=== PATIENT | female | born 1935 | race Caucasian/White ===

== ENCOUNTER 2017-12-24 07:00 | Inpatient (IN) | payer OTHER ==
[~2017-12-24] VITALS: Ht 157.5 cm; Wt 88.0 kg
[2017-12-24] VITALS (8 sets, daily range): BP systolic 135–190; BP diastolic 61–91
[~2017-12-24 07:00] MED LIST: ALENDRONATE SOD70 MG PO; APAP500 PO; ASPIR 8181 MG PO; ATORVASTATIN CA40 MG PO; BRILINTA90 MG PO; BYSTOLIC 5 MG5 M1 PO; CRANBERRY 6,001 EACH PO; FISH OIL 1,001000 M2 PO; GLUCOSAMINE HC500 MG PO; IRON325 PO; LEVOTHYROXIN0.112 M1 PO; LOPRESSOR50 PO; NITROGLYCERIN0.4 MG SUBLING; PEPCID20 MG PO; PLAVIX 75 MG TA75 MG PO; UNICOMPLEX M TA1 TA1 PO; VITAMINC500 PO; XALATAN2.5 ML OPHTHALMIC; XARELTO15 MG PO; ZANTAC 7575 MG PO
[2017-12-24] MEDS ORDERED: ISOSORBIDE DINI30 MG PO (07:22)
[2017-12-24 07:34] LABS: ABSOLUTE BASOPHILS 0.1 thou/uL (0.0-0.2); ABSOLUTE EOSINOPHILS 0.2 thou/uL (0.0-0.7); ABSOLUTE LYMPHOCYTES 1.2 thou/uL (0.8-5.3); ABSOLUTE MONOCYTES 0.3 thou/uL (0.0-1.2); ABSOLUTE NEUTROPHILS 3.5 thou/uL (1.6-8.1); BASOPHILS 1.4 %; HEMATOCRIT 38.7 % (37.0-47.0); HEMOGLOBIN 13.2 gm/dL (12.0-15.0); LYMPHOCYTES 22.7 %; MCH 33.4 pg (26.0-34.0); MCHC 34.1 g/dL (28.0-37.0); MCV 97.9 fL (80.0-100.0); MONOCYTES 5.5 %; MPV 9.5 fl. (7.2-11.1); NUCLEATED RBCS 0 /100WBC; PLATELET COUNT* 230 thou/uL (150-400); POLYS 67.4 %; RBC 3.96 mil/uL (4.20-5.00); RDW-CV 13.9 % (10.5-14.5); WBC 5.2 thou/uL (4.0-11.0)
[2017-12-24 07:48] LABS: APTT 31.7 Seconds (25.0-31.3); INR 1.2; PROTIME 11.7 Seconds (9.20-11.50)
[2017-12-24 07:51] LABS: ANION GAP 12 mmol/L (7-16); BUN 12 mg/dL (7-18); CALCIUM 8.7 mg/dL (8.5-10.1); CHLORIDE 106 mmol/L (98-107); CO2 25 mmol/L (21-32); CREATININE 0.9 mg/dL (0.6-1.3); GLUCOSE 130 mg/dL (70-99); POTASSIUM 3.3 mmol/L (3.5-5.1); SODIUM 143 mmol/L (136-145)
[2017-12-24 08:10] LABS: ALBUMIN 3.4 g/dL (3.4-5.0); ALKALINE PHOSPHATASE 71 U/L (46-116); CK-MB MASS 3.4 ng/mL (<0.5-3.6); LIPASE 74 U/L (73-393); MAGNESIUM 1.8 mg/dL (1.8-2.4); NT-PRO BRAIN NAT PEPTIDE 513 pg/mL (<300); SGOT 27 U/L (15-37); SGPT 43 U/L (30-65); TOTAL BILIRUBIN 0.5 mg/dL (<0.1-1.0); TROPONIN-I LEVEL <0.06 ng/mL (<0.06)
[2017-12-24] MEDS ORDERED: XARELTO15 MG PO (11:39)
--- NOTE | 2017-12-24 12:11 | EKG ---
[place] [address] ELECTROCARDIOGRAM REPORT Name: SAMMY LUJAN Room: [address] IN [facility]#: [id number] Admission: 12/24/17 Attend Phys: Sergio Kelsey, Discharge: Date of : 33 Report #: [id number] THIS REPORT FOR: //name// [facility] ED Test Date: 2017-12-24 Test Time: 07:12:12 Pat Name: SAMMY LUJAN Department: Room: Gender: F News Commentator: Loi AVIAN : 1935 Requested By: Nelson Ponce Order Number: [id number] MD: Mat Loya Measurements Intervals [place] Rate: 59 P: 30 TN: 168 QRS: 20 QRSD: 112 T: 58 QT: 411 QTc: 408 Interpretive Statements Pacemaker spikes or artifacts Sinus rhythm Supraventricular bigeminy Probable left atrial enlargement Left ventricular hypertrophy Compared to ECG 12/06/2016 11:43:01 Left ventricular hypertrophy now present Electronically Signed On 12-24-2017 12:11:04 CDT by Mat Loya [email or web address] <ELECTRONICALLY SIGNED> By: Alisia Loya MD, [facility] 12/24/17 1211 1 1 Alisia Loya MD, [facility] /EPI
[2017-12-24 13:20] LABS: CALCIUM 8.9 mg/dL (8.5-10.1); MAGNESIUM 1.9 mg/dL (1.8-2.4); POTASSIUM 3.7 mmol/L (3.5-5.1)
[2017-12-25 04:22] VITALS: BP 185/76
[2017-12-25 07:28] LABS: HEMATOCRIT 39.6 % (37.0-47.0); HEMOGLOBIN 13.4 gm/dL (12.0-15.0); MCH 33.3 pg (26.0-34.0); MCHC 33.8 g/dL (28.0-37.0); MCV 98.5 fL (80.0-100.0); MPV 9.2 fl. (7.2-11.1); RBC 4.02 mil/uL (4.20-5.00); RDW-CV 14.4 % (10.5-14.5); WBC 5.5 thou/uL (4.0-11.0)
[2017-12-25 07:48] LABS: ALBUMIN 3.1 g/dL (3.4-5.0); ALKALINE PHOSPHATASE 60 U/L (46-116); ANION GAP 9 mmol/L (7-16); BUN 16 mg/dL (7-18); CALCIUM 8.5 mg/dL (8.5-10.1); CHLORIDE 107 mmol/L (98-107); CHOLESTEROL 115 mg/dL (<200); CO2 26 mmol/L (21-32); GLUCOSE 126 mg/dL (70-99); HDL CHOLESTEROL 48 mg/dL (>40); LDL CHOLESTEROL 44 mg/dL (<100); POTASSIUM 3.5 mmol/L (3.5-5.1); SGOT 26 U/L (15-37); SGPT 38 U/L (30-65); SODIUM 142 mmol/L (136-145); TC:HDL 2.4 Ratio (Not establshd); TOTAL BILIRUBIN 0.4 mg/dL (<0.1-1.0); TOTAL PROTEIN 6.8 g/dL (6.4-8.2); TRIGLYCERIDE 115 mg/dL (<150); TROPONIN-I LEVEL 0.24 ng/mL (<0.06); VLDL 23 mg/dL (<40)
[2017-12-25 07:49] LABS: SERUM ASSESSMENT Clear
[2017-12-25 08:00] VITALS: BP 188/63
[2017-12-25 12:00] VITALS: BP 203/87
--- NOTE | 2017-12-25 14:04 | 2DMMODE ---
[place] [address] 2 D/M-MODE ECHOCARDIOGRAM Name: SAMMY LUJAN Room: [address] IN [facility]#: [id number] Admission: 12/24/17 Attend Phys: Sergio Groves Discharge: Date of : 33 Date of Service: 12/25/17 1404 Report #: [id number] THIS REPORT FOR: //name// APPROVED REPORT Study performed: 12/25/2017 11:45:14 EXAM: Comprehensive 2D, Doppler, and color-flow Echocardiogram Patient Location: In-Patient Room #: [facility] Status: routine BSA: 1.87 HR: 65 bpm BP: 188/63 mmHg Rhythm: NSR Other Information Study Quality: Good Indications CAD Chest Pain 2D Dimensions LVEF(%): 85.59 (>50%) IVSd: 11.32 (7-11mm) LVOT Diam: 17.98 (18-24mm) LVDd: 48.62 mm PWd: 10.45 (7-11mm) Ascending Ao: 39.63 (22-36mm) LVDs: 21.87 (25-40mm) Aortic Root: 35.77 mm Greer's LVEF: 85.59 % Volumes Left Atrial Volume (Systole) LA ESV Index: 34.90 mL/m2 Aortic Valve AoV Peak Rafael.: 1.86 m/s AO Peak Gr.: 13.81 mmHg LVOT Max P.43 mmHg AO Mean Gr.: 6.69 mmHg LVOT Mean P.35 mmHg LVOT Max V: 1.45 m/s AO V2 VTI: 41.29 cm LVOT Mean V: 0.96 m/s MUKUL (VTI): 2.19 cm2 LVOT V1 VTI: 35.64 cm AI [place]: 2.75 m/s2 AI PHT: 488.32 [place] [address] 2 D/M-MODE ECHOCARDIOGRAM Name: SAMMY LUJAN Room: [address] IN [facility]#: [id number] Admission: 12/24/17 Attend Phys: Sergio Groves Discharge: Date of : 34 Date of Service: 12/25/17 1404 Report #: [id number] Mitral Valve E/A Ratio: 1.01 MV Decel. Time: 264.72 ms MV E Max Rafael.: 1.29 m/s MV PHT: 76.77 ms MVA (PHT): 2.87 cm2 TDI E/Lateral E': 21.50 E/Medial E': 18.43 Medial E' Rafael.: 0.07 m/s Lateral E' Rafael.: 0.06 m/s Pulmonary Valve PV Peak Rafael.: 0.82 m/s PV Peak Gr.: 2.68 mmHg Tricuspid Valve TR Peak Gr.: 26.65 mmHg RVSP: 31.00 mmHg Left Ventricle The left ventricle is normal size. There is normal LV segmental wall motion. There is normal left ventricular wall thickness. Left ventricular systolic function is normal. The left ventricular ejection fraction is within the normal range. LVEF is 65%. Grade I - abnormal relaxation pattern. Right Ventricle The right ventricle is normal size. The right ventricular systolic function is normal. Atria The left atrium size is normal. The right atrium size is normal. Aortic Valve Mild aortic valve sclerosis. Mild aortic regurgitation. There is no aortic valvular stenosis. Mitral Valve The mitral valve is mildly thickened. Mild mitral regurgitation. No evidence of mitral valve stenosis. Tricuspid Valve The tricuspid valve is normal in structure. Mild tricuspid regurgitation. The RVSP is 30-35 [place] [address] 2 D/M-MODE ECHOCARDIOGRAM Name: SAMMY LUJAN Room: [address] IN [facility]#: [id number] Admission: 12/24/17 Attend Phys: Sergio Groves Discharge: Date of : 33 Date of Service: 12/25/17 1404 Report #: [id number] Pulmonic Valve The pulmonary valve is normal in structure. Trace pulmonic regurgitation. Great Vessels The aortic root is normal in size. IVC is normal in size and collapses with >50% inspiration Pericardium There is no pericardial effusion. <Conclusion> The left ventricle is normal size. There is normal left ventricular wall thickness. Left ventricular systolic function is normal. The left ventricular ejection fraction is within the normal range. LVEF is 65%. Grade I - abnormal relaxation pattern. The right ventricle is normal size. The left atrium size is normal. Mild aortic valve sclerosis. Mild aortic regurgitation. There is no aortic valvular stenosis. The mitral valve is mildly thickened. Mild mitral regurgitation. No evidence of mitral valve stenosis. The tricuspid valve is normal in structure. Mild tricuspid regurgitation. The RVSP is 30-35 mmHg. IVC is normal in size and collapses with >50% inspiration There is no pericardial effusion. There is normal LV segmental wall motion. <ELECTRONICALLY SIGNED> By: Johnson Posada MD, FACC 12/25/17 1404 1404 1404 Johnson Posada MD, FACC /INF
--- NOTE | 2017-12-25 14:22 | EKG ---
[place] [address] ELECTROCARDIOGRAM REPORT Name: SAMMY LUJAN Room: [address] ADM IN .R.#: [id number] Admission: 12/24/17 Attend Phys: Sergio Kelsey, Discharge: Date of : 34 Report #: [id number] THIS REPORT FOR: //name// [facility] Test Date: 2017-12-24 Test Time: 18:59:37 Pat Name: SAMMY LUJAN Department: Room: [address] Gender: F Customer Experience Strategist: : 1935 Requested By: Nelson Ponce Order Number: [id number] MD: Johnson Posada Measurements Intervals [place] Rate: 74 P: 38 [place]: 159 QRS: 29 QRSD: 88 T: 50 QT: 410 QTc: 455 Interpretive Statements Sinus rhythm Baseline wander in lead(s) V4,V6 Compared to ECG 12/24/2017 07:12:12 Atrial premature complex(es) no longer present Left ventricular hypertrophy no longer present Electronically Signed On 12-25-2017 14:21:59 CDT by Johnson Posada [email or web address] <ELECTRONICALLY SIGNED> By: Johnson Posada MD, [facility] 12/25/17 1421 1859 1859 Johnson Posada MD, [facility] /EPI
--- NOTE | 2017-12-25 14:22 | EKG ---
[place] [address] ELECTROCARDIOGRAM REPORT Name: SAMMY LUJAN Room: [address] ADM IN ..#: [id number] Admission: 12/24/17 Attend Phys: Sergio Kelsey, Discharge: Date of : 34 Report #: [id number] THIS REPORT FOR: //name// 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 12/25/17 1421 1859 1859 Johnson Posada MD, [facility] /EPI
[2017-12-25 16:00] VITALS: BP 210/71
--- NOTE | 2017-12-25 16:38 | CON ---
[address] [address] CONSULTATION Name: SAMMY LUJAN Room: [address] IN .R.#: [id number] Admission: 12/24/17 Attend Phys: Sergio Kelsey, Discharge: Date of : 34 Report #: [id number] THIS REPORT FOR: //name// CC: Nyla Kelsey DATE OF SERVICE: 12/24/2017 CARDIOLOGY CONSULTATION HISTORY OF PRESENT ILLNESS: I was asked by Dr. Kelsey and by Dr. Ponce to see this 82-year-old white female in cardiology consultation for evaluation and treatment of chest pain. 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 Additionally, she has a 50% mid ramus intermedius occlusion. There are diffuse luminal irregularities, up to 50% tubular narrowing in the mid LAD as well. There is a metal stent in the codominant circumflex that was open as of 08/2015. The right coronary artery is occluded at the ostium. The right coronary artery was also completely occluded after the right ventricular branch. This lady probably has chronic stable angina, although she really never reported it to her primary outside machinist apprentice, Dr. Yu. She in fact has substernal chest pressure with exertion that she has had for years. It stops her from doing what she needs to do and she has to sit down and recover. She has not used nitroglycerin for that. Yesterday, she had a fairly severe chest pressure that I think she said was a 7 or 8 on a scale of 10. It lasted about an hour. Nitroglycerin that she took at home did not help. She got some nitrospray en route to the ER with EMS that seemed to help. It was substernal discomfort that radiated to her neck. The discomfort was worse with activity, better with rest, occurred at rest yesterday and was associated with shortness of breath, but not nausea or vomiting. There was no diaphoresis. She got this discomfort this morning when she woke up. There was no relationship to food. She does have chronic dyspnea on exertion, but not shortness of breath at rest, orthopnea or PND. She does get edema occasionally. She has not had syncope or near syncope. Coronary risk factors include a past history of smoking, she is a former smoker, however. She does have hypercholesterolemia, but not diabetes. She does have high blood pressure. There is family history of heart disease. She has not had renal disease. 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 Her right coronary artery does have a TREE TAPPING LABORER. She does have a history of paroxysmal atrial fibrillation that occurred in the context of multiple pulmonary emboli, I believe in November of last year. She has been on Xarelto since; initially she was on 15 mg twice a day and then 20 mg a day and more recently 15 mg a day. She is now over a year since she was started on Xarelto. At one time she was on aspirin and clopidogrel, but she developed bleeding issues and those had to be stopped. She does have hypothyroidism as well. She did have myocardial infarction that resulted in her getting the stent [address] [address] CONSULTATION Name: SAMMY LUJAN Room: M.221-P ADM IN M.R.#: [id number] Admission: 12/24/17 Attend Phys: Sergio Kelsey, Discharge: Date of : 34 Report #: [id number] in her coronary. She has never had a TIA or CVA. She does get pain in her legs when she walks and may have claudication. She does not have any open or nonhealing wounds. She does have a history of congestive heart failure, she says. She has had a cyst in her kidneys. She has a history of arteritis. She has had a kidney surgery, bladder surgery, hysterectomy, and both knees replaced. ALLERGIES: SHE HAS MULTIPLE ALLERGIES INCLUDING PENICILLIN, SULFA, NITROFURANTOIN, TRIMETHOPRIM, HYDRALAZINE. HOME MEDICATIONS: Include p.r.n. Tylenol, Fosamax 70 mg , atorvastatin 40 mg daily, fish oil 1000 mg b.i.d., iron 325 mg daily, Imdur 30 mg daily, Synthroid 0.112 mg daily, metoprolol 50 mg b.i.d., multivitamin with minerals daily, and p.r.n. nitroglycerin as well as Xarelto 15 mg daily. Today, I decreased her Xarelto dose to 10 mg daily given that she has been over a year since her pulmonary emboli. REVIEW OF SYSTEMS: Positive for palpitations, chest discomfort, shortness of breath with exercise, history of a heart murmur as a child, extremity edema, thyroid trouble, blood clot in her lungs, medical ALLERGIES INCLUDING PENICILLIN, arthritis, wearing glasses and loss of vision. Otherwise, review of systems is negative for some 35 different complaints in 14 different system categories including central nervous system, general, respiratory, cardiovascular, endocrine, gastrointestinal, genitourinary, hematologic, lymphatic, allergic, immunologic, psychiatric, musculoskeletal, skin, eyes, ears, nose and throat. Please see review of systems form for details and negatives in review of systems. SOCIAL HISTORY: She is . She has an alcoholic beverage rarely, usually only 2-3 times a year. She does not smoke, does not use illegal drugs. FAMILY HISTORY: Mother of kidney failure. Grandmother and aunts had heart disease. Sister had an aortic aneurysm. PHYSICAL EXAMINATION: GENERAL: She presents as a well-developed, well-nourished white female, in no acute distress. VITAL SIGNS: Pulse was 63 and regular, blood pressure is 165/70, respirations 16 and regular, temperature is 98.4. HEENT: Her head is atraumatic. Eyes clear. NECK: Supple. There is no jugular venous distention or hepatojugular reflux. Thyroid is not enlarged. There is no adenopathy. SKIN: Warm and dry. MOUTH: Mucous membranes are moist. LUNGS: Clear to auscultation and percussion. HEART: Revealed normal first and second heart sounds. There is soft [place] [address] CONSULTATION Name: SAMMY LUJAN Room: [address]#: [id number] Admission: 12/24/17 Attend Phys: Sergio Kelsey, Discharge: Date of : 34 Report #: [id number] is no S3. There are no murmurs, rubs, thrills, heaves or gallops. PMI is nondisplaced. ABDOMEN: Soft, flat, nontender, no palpable masses, no organomegaly. EXTREMITIES: Reveal no cyanosis, clubbing or edema. NEUROLOGIC: The patient mentated normally, talked normally and moved all extremities normally. DIAGNOSTIC DATA: Her EKG showed normal sinus rhythm. There are atrial premature beats, left atrial enlargement, probable left ventricular hypertrophy and there are no acute changes. LABORATORY DATA: Her initial troponin was normal and her NT-proBNP was only 513. CPK was 222 with a CK-MB of 3.4. IMPRESSION: 1. Chest pain, likely ischemic. 2. Coronary artery disease. 3. Carotid vascular disease. 4. Left subclavian stenosis. 5. Chronic total occlusion of the right coronary artery. 6. Paroxysmal atrial fibrillation. 7. Status post multiple pulmonary emboli. 8. Essential hypertension. 9. Hypothyroidism. 10. Hypercholesterolemia. RECOMMENDATION: She should have a Lexiscan Cardiolite stress test and an echo. She may need cardiac catheterization. Thank you very much for asking me to see the patient. If there are any questions, please feel free to contact me. <ELECTRONICALLY SIGNED> By: Alisia Loya MD, FACC 12/25/17 1638 1143 [id number]. Mat Loya MD, FACC /nt
--- NOTE | 2017-12-25 17:13 | CARDNUC ---
[place] [address] CARDIAC NUCLEAR IMAGING REPORT Name: SAMMY LUJAN Room: [address] IN [facility]#: [id number] Admission: 12/24/17 Attend Phys: Sergio Groves Discharge: Date of : 33 Date of Service: 12/25/17 1713 Report #: [id number] THIS REPORT FOR: //name// APPROVED REPORT Study performed: 12/24/2017 12:45:00 Exam: Nuclear Stress Test Indication: Chest pain Patient Location: In-Patient Room #: 221 Stress Tech: Elvia Austin Stress Nurse: Aide Pulido RN Ht: 5 ft 2 in Wt: 190 lbs BSA: 1.87 m2 BMI: 34.74 Medical History Medical History: CAD s/p AK, CAD s/p AK, HTN, Hyperlipidemia Medications: rivaroxaban, atorvastatin, diltiazem, metoprolol, isosorbide, plavix Allergies: penicillin, sulfa, hydralazine, trimethoprim Cardiac Risk Factors: Age, HTN, Hyperlipidemia, PVD Previous Cardiac Procedures: Myocardial infarction, PCI Exercise History: Sedentary Meds Held (24 hrs): metoprolol Stress Test Details Stress Test: Pharmacologic stress testing performed using 0.4 mg of regadenoson per 5 mL given IV over 10 seconds. Reason for pharmacologic stress test: physical limitation. HR Resting HR: 61 bpm Max Heart Rate (APMHR): 137 bpm Max HR Achieved: 86 bpm Target HR (85% APMHR): 116 bpm % of APMHR: 62 Recovery HR: 79 bpm BP Resting BP: 218/90 mmHg Max BP: 184/78 mmHg ECG Resting ECG: Sinus Rhythm, [place] [address] CARDIAC NUCLEAR IMAGING REPORT Name: SAMMY LUJAN Room: [address]#: [id number] Admission: 12/24/17 Attend Phys: Sergio Groves Discharge: Date of : 33 Date of Service: 12/25/17 1713 Report #: [id number] Stress ECG: Sinus Rhythm, normal EKG ST Change: None Arrhythmia: None Recovery ECG: Sinus Rhythm, normal EKG Recovery ST Change: None Recovery Arrhythmia: None Clinical Reason for Termination: Completed protocol Stress Symptoms: chest pressure Exercise duration: - min sec Exercise capacity: 1.0 METs The patient had very mild chest pressure post Lexiscan infusion. Nurse Comments Patient complained of chest pressure post lexiscan injection, rated 1, resolved in recovery. Stress ECG Conclusion The baseline 12-lead electrocardiogram showed sinus rhythm without significant ST or T wave abnormality. EKGs obtained during and post Lexiscan infusion show sinus rhythm with no significant ST or T wave changes when compared to baseline. There were no stress-induced arrhythmias. NM EXAM: Myocardial Perfusion REST/STRESS Imaging Protocol: Stress Tc-99m/Rest Tc-99m 2 days Pharmacologic Stress Pharmacologic stress test was performed by injecting Regadenoson 0.4 mg IV push followed by the intravenous injection of 34.4 mCi of Tc-99m Sestamibi. Time of stress injection: 1505 Date: 12/25/2017 Administration Route: IV Administration Site: Left AC Heart Rate at time of stress injection: 86 bpm. Gated Stress SPECT was performed 40 minutes after stress injection. The images were gated to evaluate regional wall motion and calculate left ventricular ejection fraction. Prone imaging was performed. Study Quality Study: Good Artifact: [place] [address] CARDIAC NUCLEAR IMAGING REPORT Name: SAMMY LUJAN Room: [address]#: [id number] Admission: 12/24/17 Attend Phys: Sergio Groves Discharge: Date of : 33 Date of Service: 12/25/17 1713 Report #: [id number] Study Data Post stress, the left ventricular ejection was 72%.. Perfusion Perfusion images obtained post Lexiscan stress show uniform uptake of the radioisotope throughout the myocardium without defect. Wall Motion Normal left ventricular wall motion. Nuclear Conclusion ECG Findings: negative for ischemia Clinical Findings: equivocal Nuclear Findings: negative for ischemia Exercise Capacity: not assessed Left Ventricular Function: normal Risk Study: low Myocardial perfusion images show no defect post stress to suggest infarct or ischemia. Left ventricular systolic function is normal on gated studies. This is a low risk study. <Conclusion> The baseline 12-lead electrocardiogram showed sinus rhythm without significant ST or T wave abnormality. EKGs obtained during and post Lexiscan infusion show sinus rhythm with no significant ST or T wave changes when compared to baseline. There were no stress-induced arrhythmias. <ELECTRONICALLY SIGNED> By: Luis Miguel Yu MD, [facility] 12/25/17 1713 171 171 Luis Miguel Yu MD, FACC /INF
[2017-12-25 20:00] VITALS: BP 171/66
[2017-12-25 23:21] VITALS: BP 162/80
[2017-12-26 04:26] VITALS: BP 173/78
[2017-12-26 04:57] LABS: ABSOLUTE BASOPHILS 0.1 thou/uL (0.0-0.2); ABSOLUTE EOSINOPHILS 0.2 thou/uL (0.0-0.7); ABSOLUTE LYMPHOCYTES 1.4 thou/uL (0.8-5.3); ABSOLUTE MONOCYTES 0.5 thou/uL (0.0-1.2); ABSOLUTE NEUTROPHILS 3.3 thou/uL (1.6-8.1); BASOPHILS 1.2 %; HEMATOCRIT 39.2 % (37.0-47.0); HEMOGLOBIN 13.6 gm/dL (12.0-15.0); MCH 33.5 pg (26.0-34.0); MCHC 34.6 g/dL (28.0-37.0); MCV 96.9 fL (80.0-100.0); MONOCYTES 9.2 %; MPV 9.8 fl. (7.2-11.1); NUCLEATED RBCS 0 /100WBC; PLATELET COUNT* 242 thou/uL (150-400); POLYS 60.6 %; RBC 4.04 mil/uL (4.20-5.00); RDW-CV 14.1 % (10.5-14.5); WBC 5.4 thou/uL (4.0-11.0)
[2017-12-26 05:11] LABS: ALBUMIN 3.3 g/dL (3.4-5.0); CALCIUM 9.1 mg/dL (8.5-10.1); POTASSIUM 3.4 mmol/L (3.5-5.1); TOTAL BILIRUBIN 0.4 mg/dL (<0.1-1.0); TOTAL PROTEIN 6.8 g/dL (6.4-8.2)
[2017-12-26 08:26] VITALS: BP 177/75
[2017-12-26 12:27] VITALS: BP 151/73
[2017-12-26 13:00] VITALS: BP 151/73
== END 2017-12-26 13:36 | disposition home or self-care (01) | DRG 280 ==
LOC: M.ERS 07:00 → M.TBA-ER 08:41 → M.2W 08:41
PROVIDERS: Family Medicine; Internal Medicine; ADMIT Family Medicine
DX: I21.4 Non-ST elevation (NSTEMI) myocardial infarction (principal); I50.31 Acute diastolic (congestive) heart failure; E44.1 Mild protein-calorie malnutrition; E78.00 Pure hypercholesterolemia, unspecified; I11.0 Hypertensive heart disease with heart failure; I48.0 Paroxysmal atrial fibrillation; E03.9 Hypothyroidism, unspecified; E78.5 Hyperlipidemia, unspecified; E87.6 Hypokalemia; I25.10 Atherosclerotic heart disease of native coronary artery without angina pectoris; Z96.653 Presence of artificial knee joint, bilateral; Z79.899 Other long term (current) drug therapy; Z88.2 Allergy status to sulfonamides; Z88.8 Allergy status to other drugs, medicaments and biological substances; I25.2 Old myocardial infarction; Z90.89 Acquired absence of other organs; Z87.442 Personal history of urinary calculi; Z90.710 Acquired absence of both cervix and uterus; Z82.49 Family history of ischemic heart disease and other diseases of the circulatory system; Z88.0 Allergy status to penicillin; Z84.1 Family history of disorders of kidney and ureter; Z84.89 Family history of other specified conditions; Z86.711 Personal history of pulmonary embolism

== ENCOUNTER 2018-10-29 11:03 | Emergency (ER) | payer OTHER ==
[~2018-10-29] VITALS: Ht 154.9 cm; Wt 85.3 kg
[~2018-10-29 11:03] MED LIST changes: +ISOSORBIDE DINI30 MG PO
[2018-10-29] MEDS ORDERED: ASPIR 8181 M1 PO (11:21)
[2018-10-29] MEDS ORDERED: LIDOCAINE PAIN1 EACH TRANSDERM (11:43)
[2018-10-29] MEDS ORDERED: HYDROCODONE-AP1 EAC6 PO (11:43)
[2018-10-29] MEDS ORDERED: FLEXERIL PO (11:43)
[2018-10-29 12:20] VITALS: BP 124/58
== END 2018-10-29 12:21 | disposition home or self-care (01) ==
LOC: M.ERS 11:03
DX: M54.12 Radiculopathy, cervical region (principal); E78.00 Pure hypercholesterolemia, unspecified; I10 Essential (primary) hypertension; I48.91 Unspecified atrial fibrillation; Z87.442 Personal history of urinary calculi; Z90.710 Acquired absence of both cervix and uterus; Z96.653 Presence of artificial knee joint, bilateral; Z88.1 Allergy status to other antibiotic agents; Z88.0 Allergy status to penicillin; Z88.2 Allergy status to sulfonamides; Z88.8 Allergy status to other drugs, medicaments and biological substances; Z95.5 Presence of coronary angioplasty implant and graft

== ENCOUNTER 2019-07-12 23:14 | Emergency (ER) | payer OTHER ==
[~2019-07-12] VITALS: Ht 170.2 cm; Wt 93.0 kg
[~2019-07-12 23:14] MED LIST changes: +ASPIR 8181 M1 PO; +FLEXERIL PO; +HYDROCODONE-AP1 EAC6 PO; +LIDOCAINE PAIN1 EACH TRANSDERM
[2019-07-12 23:38] LABS: ABSOLUTE BASOPHILS 0.1 thou/uL (0.0-0.2); ABSOLUTE EOSINOPHILS 0.1 thou/uL (0.0-0.7); ABSOLUTE LYMPHOCYTES 1.7 thou/uL (0.8-5.3); ABSOLUTE MONOCYTES 0.4 thou/uL (0.0-1.2); ABSOLUTE NEUTROPHILS 2.8 thou/uL (1.6-8.1); EOSINOPHILS 2.8 %; HEMOGLOBIN 13.4 gm/dL (12.0-15.0); LYMPHOCYTES 33.2 %; MCH 33.6 pg (26.0-34.0); MCHC 34.4 g/dL (28.0-37.0); MCV 97.6 fL (80.0-100.0); MONOCYTES 8.2 %; MPV 9.5 fl. (7.2-11.1); NUCLEATED RBCS 0 /100WBC; PLATELET COUNT* 243 thou/uL (150-400); POLYS 54.8 %; RDW-CV 13.7 % (10.5-14.5); WBC 5.1 thou/uL (4.0-11.0)
[2019-07-12 23:58] LABS: CALCIUM 9.5 mg/dL (8.5-10.1); CREATININE 0.9 mg/dL (0.6-1.3); POTASSIUM 3.5 mmol/L (3.5-5.1)
[2019-07-12 23:59] LABS: INR 1.2; PROTIME 12.7 Seconds (9.20-11.50)
[2019-07-13 00:08] LABS: ALBUMIN 3.4 g/dL (3.4-5.0); TOTAL BILIRUBIN 0.2 mg/dL (<0.1-1.0); TOTAL PROTEIN 7.2 g/dL (6.4-8.2)
[2019-07-13] MEDS ORDERED: COZAAR 50 MG TA50 M1 PO (00:28)
[2019-07-13 00:38] VITALS: BP 175/82
--- NOTE | 2019-07-13 11:28 | EKG ---
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
== END 2019-07-13 01:01 | disposition home or self-care (01) ==
LOC: M.ERS 23:14
PROVIDERS: Emergency Medicine
DX: I10 Essential (primary) hypertension (principal); I48.91 Unspecified atrial fibrillation; E78.00 Pure hypercholesterolemia, unspecified; Z95.5 Presence of coronary angioplasty implant and graft; Z90.49 Acquired absence of other specified parts of digestive tract; Z87.442 Personal history of urinary calculi; Z90.710 Acquired absence of both cervix and uterus; Z96.653 Presence of artificial knee joint, bilateral; Z88.0 Allergy status to penicillin; Z88.1 Allergy status to other antibiotic agents; Z88.2 Allergy status to sulfonamides; Z88.8 Allergy status to other drugs, medicaments and biological substances

== ENCOUNTER 2020-07-10 23:20 | Observation (INO) | payer MEDICARE ==
[~2020-07-10] VITALS: Ht 154.9 cm; Wt 90.7 kg
[2020-07-10 23:20] VITALS: BP 159/69
[~2020-07-10 23:20] MED LIST changes: +COZAAR 50 MG TA50 M1 PO
[2020-07-10 23:52] LABS: URINE BILIRUBIN NEGATIVE (Negative); URINE BLOOD NEGATIVE (Negative); URINE CLARITY CLEAR; URINE COLOR YELLOW; URINE GLUCOSE-RANDOM NEGATIVE (Negative); URINE KETONES NEGATIVE (Negative); URINE LEUKOCYTES-REFLEX NEGATIVE (Negative); URINE NITRITE-REFLEX NEGATIVE (Negative); URINE PROTEIN NEGATIVE (Negative); URINE UROBILINOGEN 0.2 E.U./dl (0.2-1.0)
[2020-07-10] MEDS ORDERED: TIMOLOL MALEATE5 M2 OPHTHALMIC (23:52)
[2020-07-10] MEDS ORDERED: NORCO 10-325 T1 EACH PO (23:53)
[2020-07-11 00:10] LABS: ABSOLUTE BASOPHILS 0.1 thou/uL (0.0-0.2); ABSOLUTE EOSINOPHILS 0.1 thou/uL (0.0-0.7); ABSOLUTE LYMPHOCYTES 1.1 thou/uL (0.8-5.3); ABSOLUTE MONOCYTES 0.4 thou/uL (0.0-1.2); ABSOLUTE NEUTROPHILS 0.7 thou/uL (1.6-8.1); EOSINOPHILS 4.9 %; HEMATOCRIT 39.2 % (37.0-47.0); HEMOGLOBIN 13.3 gm/dL (12.0-15.0); LYMPHOCYTES 44.3 %; MCH 33.5 pg (26.0-34.0); MCV 98.8 fL (80.0-100.0); MONOCYTES 16.8 %; MPV 10.2 fl. (7.2-11.1); NUCLEATED RBCS 0 /100WBC; PLATELET COUNT* 56 thou/uL (150-400); RBC 3.96 mil/uL (4.20-5.00); RDW-CV 14.6 % (10.5-14.5); WBC 2.4 thou/uL (4.0-11.0)
[2020-07-11 00:19] LABS: CALCIUM 9.4 mg/dL (8.5-10.1); CREATININE 1.5 mg/dL (0.6-1.3); POTASSIUM 4.1 mmol/L (3.5-5.1)
[2020-07-11 00:24] LABS: INR 1.3; PROTIME 13.8 Seconds (9.20-11.50)
[2020-07-11 00:29] LABS: ALBUMIN 3.5 g/dL (3.4-5.0); MAGNESIUM 2.2 mg/dL (1.8-2.4); TOTAL BILIRUBIN 0.3 mg/dL (<0.1-1.0); TOTAL PROTEIN 7.4 g/dL (6.4-8.2)
[2020-07-11 02:40] VITALS: BP 167/72
[2020-07-11 03:00] VITALS: BP 188/76
[2020-07-11 08:30] VITALS: BP 138/62
[2020-07-11 11:35] LABS: CHOLESTEROL 146 mg/dL (<200); HDL CHOLESTEROL 36 mg/dL (>40); LDL CHOLESTEROL 79 mg/dL (<100); TC:HDL 4.1 Ratio (Not establshd); TRIGLYCERIDE 155 mg/dL (<150); VLDL 31 mg/dL (<40)
[2020-07-11 11:47] LABS: SERUM ASSESSMENT Clear
[2020-07-11 16:00] VITALS: BP 134/52
[2020-07-11 19:50] VITALS: BP 149/69
[2020-07-12] VITALS: BP 132/60
[2020-07-12 04:31] VITALS: BP 100/63
[2020-07-12] MEDS ORDERED: IMDUR 30 MG TAB30 M1 PO (09:15)
[2020-07-12] MEDS ORDERED: RANEXA500 MG PO (09:15)
[2020-07-12] MEDS ORDERED: TOPROL XL100 MG PO (09:29)
[2020-07-12 09:45] VITALS: BP 140/70
[2020-07-12 09:46] LABS: HEMATOCRIT 38.8 % (37.0-47.0); MCH 33.1 pg (26.0-34.0); MCHC 33.6 g/dL (28.0-37.0); MCV 98.5 fL (80.0-100.0); MPV 10.8 fl. (7.2-11.1); RBC 3.94 mil/uL (4.20-5.00); RDW-CV 14.1 % (10.5-14.5); WBC 2.1 thou/uL (4.0-11.0)
[2020-07-12 11:47] VITALS: BP 140/70
--- NOTE | 2020-07-14 08:29 | EKG ---
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: SATNAM : 1935 Requested By: Norma Kelley Order Number: [id number] MD: Mat Loya Measurements Intervals [place] Rate: 109 P: 53 [place]: 176 QRS: 59 QRSD: 86 T: 4 QT: 329 QTc: 444 Interpretive Statements Sinus tachycardia Consider left atrial enlargement Minimal ST depression, lateral leads Compared to ECG 07/12/2019 23:34:18 ST (T wave) deviation now present Sinus rhythm no longer present Electronically Signed On 07-14-2020 8:29:01 TASSEL MAKER by Mat Loya [email or web address] <ELECTRONICALLY SIGNED> By: Alisia Loya MD, FACC 07/14/20 0829 18 18 Alisia Loya MD, [facility] /EPI
--- NOTE | 2020-07-14 08:30 | EKG ---
[place] [address] ELECTROCARDIOGRAM REPORT Name: LUJANSAMMY Gerard Room: [address]#: [id number] Admission: 07/11/20 Attend Phys: Rakesh Cordova Discharge: 07/12/20 Date of : 33 Date of Service: 07/11/20 0236 Report #: [id number] THIS REPORT FOR: //name// [facility] ED Test Date: 2020-07-11 Test Time: 02:36:55 Pat Name: SAMMY LUJAN Department: Room: [facility] Gender: F [employer]: [facility] : 1935 Requested By: Norma Kelley Order Number: [id number] MD: Mat Loya Measurements Intervals [place] Rate: 100 P: 41 [place]: 174 QRS: 50 QRSD: 80 T: 7 QT: 339 QTc: 438 Interpretive Statements Sinus tachycardia Compared to ECG 07/10/2020 23:19:20 ST (T wave) deviation no longer present Electronically Signed On 07-14-2020 8:30:25 CHANGE CONTROL MANAGER by Mat Loya [email or web address] <ELECTRONICALLY SIGNED> By: Alisia Loya MD, [facility] 07/14/20 0830 5 5 Alisia Loya MD, [facility] /EPI
== END 2020-07-12 12:37 | disposition home or self-care (01) ==
LOC: M.ERS 23:20 → M.2W 07-11 01:14 → M.TBA-ER 07-11 01:14 → M.2W 07-11 02:02
PROVIDERS: Emergency Medicine; Registered Nurse; ADMIT Internal Medicine; ATTEND Internal Medicine
DX: R07.89 Other chest pain (principal); I10 Essential (primary) hypertension; E78.5 Hyperlipidemia, unspecified; I48.91 Unspecified atrial fibrillation; I25.2 Old myocardial infarction; E78.00 Pure hypercholesterolemia, unspecified; Z79.82 Long term (current) use of aspirin; Z79.899 Other long term (current) drug therapy; Z20.828 Contact with and (suspected) exposure to other viral communicable diseases

== ENCOUNTER 2020-07-15 12:19 | Emergency (ER) | payer MEDICARE ==
[~2020-07-15] VITALS: Ht 154.9 cm; Wt 90.7 kg
[~2020-07-15 12:19] MED LIST changes: +IMDUR 30 MG TAB30 M1 PO; +NORCO 10-325 T1 EACH PO; +RANEXA500 MG PO; +TIMOLOL MALEATE5 M2 OPHTHALMIC; +TOPROL XL100 MG PO
[2020-07-15 13:28] LABS: HEMATOCRIT 34.6 % (37.0-47.0); HEMOGLOBIN 11.7 gm/dL (12.0-15.0); MCH 33.1 pg (26.0-34.0); MCHC 33.8 g/dL (28.0-37.0); MCV 97.9 fL (80.0-100.0); MPV 9.5 fl. (7.2-11.1); NUCLEATED RBCS 0 /100WBC; PLATELET COUNT* 81 thou/uL (150-400); RBC 3.53 mil/uL (4.20-5.00); RDW-CV 14.3 % (10.5-14.5); WBC 2.3 thou/uL (4.0-11.0)
[2020-07-15 13:40] LABS: CALCIUM 9.6 mg/dL (8.5-10.1); CREATININE 1.7 mg/dL (0.6-1.3); POTASSIUM 4.2 mmol/L (3.5-5.1)
[2020-07-15 13:48] LABS: ALBUMIN 3.1 g/dL (3.4-5.0); TOTAL BILIRUBIN 0.4 mg/dL (<0.1-1.0); TOTAL PROTEIN 6.6 g/dL (6.4-8.2)
[2020-07-15] MEDS ORDERED: PREDNISONE 10 M10 MG PO (14:14)
[2020-07-15 15:03] LABS: ABSOLUTE EOSINOPHILS 0.1 thou/uL (0.0-0.7); ABSOLUTE LYMPHOCYTES 0.7 thou/uL (0.8-5.3); ABSOLUTE MONOCYTES 0.8 thou/uL (0.0-1.2); ABSOLUTE NEUTROPHILS 0.7 thou/uL (1.6-8.1); PLATELET ESTIMATE DECREASED
[2020-07-15 15:04] LABS: ANISOCYTOSIS 1+
[2020-07-15 15:10] VITALS: BP 104/53
[2020-07-15 15:37] LABS: ESR (SEDRATE) 46 mm/hr (0-30)
== END 2020-07-15 15:10 | disposition home or self-care (01) ==
LOC: M.ERS 12:19
PROVIDERS: Nurse Practitioner Family
DX: M10.9 Gout, unspecified (principal); I25.2 Old myocardial infarction; E78.00 Pure hypercholesterolemia, unspecified; I10 Essential (primary) hypertension; Z90.89 Acquired absence of other organs; I48.91 Unspecified atrial fibrillation; Z79.899 Other long term (current) drug therapy; Z79.82 Long term (current) use of aspirin; Z88.2 Allergy status to sulfonamides; Z88.0 Allergy status to penicillin; Z88.1 Allergy status to other antibiotic agents; Z88.8 Allergy status to other drugs, medicaments and biological substances; Z90.710 Acquired absence of both cervix and uterus; Z87.442 Personal history of urinary calculi

== ENCOUNTER 2021-01-24 19:20 | Inpatient (IN) | payer MEDICARE ==
[~2021-01-24] VITALS: Ht 157.5 cm; Wt 92.1 kg
[~2021-01-24 19:20] MED LIST changes: +PREDNISONE 10 M10 MG PO
[2021-01-24 19:31] VITALS: BP 133/48
[2021-01-24 21:00] LABS: CALCIUM 9.8 mg/dL (8.5-10.1); CREATININE 1.2 mg/dL (0.6-1.3); POTASSIUM 4.6 mmol/L (3.5-5.1)
[2021-01-24 21:02] LABS: HEMATOCRIT 37.6 % (37.0-47.0); HEMOGLOBIN 12.7 gm/dL (12.0-15.0); MCH 33.2 pg (26.0-34.0); MCHC 33.7 g/dL (28.0-37.0); MCV 98.7 fL (80.0-100.0); MPV 11.3 fl. (7.2-11.1); NUCLEATED RBCS 0 /100WBC; PLATELET COUNT* 98 thou/uL (150-400); RBC 3.81 mil/uL (4.20-5.00)
[2021-01-24 21:04] LABS: ALBUMIN 3.1 g/dL (3.4-5.0); TOTAL BILIRUBIN 0.9 mg/dL (<0.1-1.0); TOTAL PROTEIN 6.8 g/dL (6.4-8.2)
[2021-01-24 21:40] LABS: ABSOLUTE EOSINOPHILS 0.1 thou/uL (0.0-0.7); ABSOLUTE LYMPHOCYTES 0.6 thou/uL (0.8-5.3); ABSOLUTE MONOCYTES 0.8 thou/uL (0.0-1.2); ABSOLUTE NEUTROPHILS 1.5 thou/uL (1.6-8.1); ATYPICAL LYMPHS 9 %; PLATELET ESTIMATE ADEQUATE
[2021-01-24 23:24] LABS: URINE BILIRUBIN NEGATIVE (Negative); URINE BLOOD NEGATIVE (Negative); URINE CLARITY CLEAR; URINE COLOR YELLOW; URINE GLUCOSE-RANDOM NEGATIVE (Negative); URINE KETONES NEGATIVE (Negative); URINE LEUKOCYTES-REFLEX NEGATIVE (Negative); URINE NITRITE-REFLEX NEGATIVE (Negative); URINE PROTEIN NEGATIVE (Negative); URINE UROBILINOGEN 0.2 E.U./dl (0.2-1.0)
[2021-01-25 00:05] VITALS: BP 139/49
[2021-01-25 00:15] VITALS: BP 159/47
[2021-01-25 03:50] VITALS: BP 135/48
[2021-01-25 08:00] VITALS: BP 138/42
--- NOTE | 2021-01-25 13:55 | EKG ---
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 : 1935 Requested By: Cheryl Brand Order Number: [id number] MD: Johnson Posada Measurements Intervals [place] Rate: 69 P: 23 [place]: 152 QRS: 27 QRSD: 86 T: 50 QT: 395 QTc: 423 Interpretive Statements Sinus rhythm Atrial premature complex Probable left atrial enlargement Probable left ventricular hypertrophy Compared to ECG 07/11/2020 02:36:55 Atrial premature complex(es) now present Sinus tachycardia no longer present Electronically Signed On 01-25-2021 13:54:58 CDT by Johnson Posada [email or web address] <ELECTRONICALLY SIGNED> By: Johnson Posada MD, [facility] 01/25/21 1354 52 52 Johnson Posada MD, FAC /EPI
[2021-01-25 14:35] LABS: ABSOLUTE EOSINOPHILS 0.1 thou/uL (0.0-0.7); ABSOLUTE LYMPHOCYTES 0.4 thou/uL (0.8-5.3); ABSOLUTE MONOCYTES 0.7 thou/uL (0.0-1.2); ABSOLUTE NEUTROPHILS 0.6 thou/uL (1.6-8.1); BASOPHILS 0.5 %; EOSINOPHILS 6.1 %; HEMATOCRIT 34.3 % (37.0-47.0); HEMOGLOBIN 11.7 gm/dL (12.0-15.0); LYMPHOCYTES 24.4 %; MCH 33.6 pg (26.0-34.0); MCHC 34.2 g/dL (28.0-37.0); MCV 98.2 fL (80.0-100.0); MONOCYTES 37.7 %; MPV 10.6 fl. (7.2-11.1); NUCLEATED RBCS 0 /100WBC; PLATELET COUNT* 87 thou/uL (150-400); POLYS 31.3 %; RBC 3.49 mil/uL (4.20-5.00); RDW-CV 14.6 % (10.5-14.5)
[2021-01-25 14:39] LABS: WBC 1.8 thou/uL (4.0-11.0)
[2021-01-25 15:10] LABS: ALBUMIN 2.7 g/dL (3.4-5.0); CALCIUM 9.2 mg/dL (8.5-10.1); CREATININE 1.4 mg/dL (0.6-1.3); POTASSIUM 4.8 mmol/L (3.5-5.1); TOTAL BILIRUBIN 0.5 mg/dL (<0.1-1.0); TOTAL PROTEIN 6.5 g/dL (6.4-8.2)
[2021-01-25 15:16] VITALS: BP 154/49
[2021-01-25 20:00] VITALS: BP 136/47
[2021-01-26 03:57] LABS: HEMATOCRIT 31.5 % (37.0-47.0); HEMOGLOBIN 10.8 gm/dL (12.0-15.0); MCH 34.2 pg (26.0-34.0); MCHC 34.4 g/dL (28.0-37.0); MCV 99.4 fL (80.0-100.0); MPV 11.8 fl. (7.2-11.1); NUCLEATED RBCS 0 /100WBC; PLATELET COUNT* 82 thou/uL (150-400); RBC 3.17 mil/uL (4.20-5.00); RDW-CV 14.6 % (10.5-14.5)
[2021-01-26 04:39] LABS: WBC 1.7 thou/uL (4.0-11.0)
[2021-01-26 05:57] LABS: ABSOLUTE EOSINOPHILS 0.2 thou/uL (0.0-0.7); ABSOLUTE LYMPHOCYTES 0.8 thou/uL (0.8-5.3); ABSOLUTE MONOCYTES 0.4 thou/uL (0.0-1.2); ABSOLUTE NEUTROPHILS 0.3 thou/uL (1.6-8.1); ANISOCYTOSIS 1+; PLATELET ESTIMATE DECREASED; POIKILOCYTOSIS 1+
[2021-01-26 07:56] VITALS: BP 117/49
[2021-01-26 09:58] VITALS: BP 117/49
[2021-01-26 16:27] VITALS: BP 132/52
[2021-01-26 22:31] VITALS: BP 136/57
[2021-01-27 04:48] LABS: ALBUMIN 2.5 g/dL (3.4-5.0); CALCIUM 8.5 mg/dL (8.5-10.1); CREATININE 1.4 mg/dL (0.6-1.3); POTASSIUM 4.4 mmol/L (3.5-5.1); TOTAL BILIRUBIN 0.3 mg/dL (<0.1-1.0)
[2021-01-27 04:50] LABS: ABSOLUTE EOSINOPHILS 0.2 thou/uL (0.0-0.7); ABSOLUTE LYMPHOCYTES 0.5 thou/uL (0.8-5.3); ABSOLUTE MONOCYTES 0.7 thou/uL (0.0-1.2); ABSOLUTE NEUTROPHILS 0.3 thou/uL (1.6-8.1); BASOPHILS 2.3 %; EOSINOPHILS 9.9 %; HEMATOCRIT 30.3 % (37.0-47.0); HEMOGLOBIN 10.6 gm/dL (12.0-15.0); LYMPHOCYTES 28.8 %; MCHC 34.9 g/dL (28.0-37.0); MCV 97.5 fL (80.0-100.0); MPV 11.1 fl. (7.2-11.1); NUCLEATED RBCS 0 /100WBC; PLATELET COUNT* 104 thou/uL (150-400); RBC 3.11 mil/uL (4.20-5.00); RDW-CV 14.6 % (10.5-14.5)
[2021-01-27 05:16] LABS: WBC 1.6 thou/uL (4.0-11.0)
[2021-01-27 07:24] LABS: PLATELET ESTIMATE DECREASED
[2021-01-27 07:41] LABS: ANISOCYTOSIS 1+; POIKILOCYTOSIS 1+; POLYCHROMASIA 1+
[2021-01-27 08:00] VITALS: BP 128/50
[2021-01-27] MEDS ORDERED: CIPRO500 M1 PO (09:58)
[2021-01-27] MEDS ORDERED: METRONIDAZOLE500 M4 PO (09:58)
[2021-01-27 14:00] VITALS: BP 165/57
[2021-01-27 15:47] VITALS: BP 122/60
[2021-01-27 16:19] VITALS: BP 117/49
== END 2021-01-27 17:20 | disposition home or self-care (01) | DRG 372 ==
LOC: M.ERS 19:20 → M.ORTHSURG 23:07 → M.TBA-ER 23:07 → M.ORTHSURG 01-25 00:45
PROVIDERS: Nurse Practitioner Family; ADMIT Internal Medicine; ATTEND Internal Medicine
DX: A04.9 Bacterial intestinal infection, unspecified (principal); D61.818 Other pancytopenia; I50.32 Chronic diastolic (congestive) heart failure; E78.00 Pure hypercholesterolemia, unspecified; I11.0 Hypertensive heart disease with heart failure; I48.91 Unspecified atrial fibrillation; E66.9 Obesity, unspecified; Z20.822 Contact with and (suspected) exposure to COVID-19; Z96.653 Presence of artificial knee joint, bilateral; I25.2 Old myocardial infarction; Z95.5 Presence of coronary angioplasty implant and graft; Z90.710 Acquired absence of both cervix and uterus; Z79.899 Other long term (current) drug therapy; Z79.01 Long term (current) use of anticoagulants; Z88.1 Allergy status to other antibiotic agents; Z88.0 Allergy status to penicillin; Z88.2 Allergy status to sulfonamides; Z88.8 Allergy status to other drugs, medicaments and biological substances; Z87.891 Personal history of nicotine dependence; Z68.37 Body mass index [BMI] 37.0-37.9, adult

== ENCOUNTER → 2021-06-04 | Outpatient (CLI) | payer OTHER ==
[~2021-06-04] MED LIST changes: +CIPRO500 M1 PO; +METRONIDAZOLE500 M4 PO
[2021-06-04 10:50] LABS: HEMATOCRIT 36.1 % (37.0-47.0); HEMOGLOBIN 12.1 gm/dL (12.0-15.0); MCH 31.4 pg (26.0-34.0); MCHC 33.5 g/dL (28.0-37.0); MCV 93.9 fL (80.0-100.0); MPV 10.1 fl. (7.2-11.1); NUCLEATED RBCS 0 /100WBC; PLATELET COUNT* 150 thou/uL (150-400); RBC 3.84 mil/uL (4.20-5.00); WBC 2.1 thou/uL (4.0-11.0)
[2021-06-04 11:07] LABS: ALBUMIN 3.1 g/dL (3.4-5.0); CALCIUM 9.9 mg/dL (8.5-10.1); CREATININE 1.4 mg/dL (0.6-1.3); POTASSIUM 4.4 mmol/L (3.5-5.1); TOTAL BILIRUBIN 0.6 mg/dL (<0.1-1.0); TOTAL PROTEIN 7.8 g/dL (6.4-8.2)
[2021-06-04 11:28] LABS: ABSOLUTE BASOPHILS 0.2 thou/uL (0.0-0.2); ABSOLUTE EOSINOPHILS 0.2 thou/uL (0.0-0.7); ABSOLUTE LYMPHOCYTES 0.6 thou/uL (0.8-5.3); ABSOLUTE MONOCYTES 0.8 thou/uL (0.0-1.2); ABSOLUTE NEUTROPHILS 0.3 thou/uL (1.6-8.1); ATYPICAL LYMPHS 4 %; ATYPICAL MONONUCLEARS 10 %; METAMYELOCYTES 4 %; PLATELET ESTIMATE ADEQUATE
== END ==
LOC: M.LAB 06-03 08:30 → M.CT 06-03 09:30 → M.LAB 10:21
PROVIDERS: ATTEND Family Medicine
DX: K57.32 Diverticulitis of large intestine without perforation or abscess without bleeding (principal); I70.0 Atherosclerosis of aorta; I70.1 Atherosclerosis of renal artery; I25.10 Atherosclerotic heart disease of native coronary artery without angina pectoris; M47.816 Spondylosis without myelopathy or radiculopathy, lumbar region; K55.1 Chronic vascular disorders of intestine; E11.9 Type 2 diabetes mellitus without complications; I10 Essential (primary) hypertension; Z90.710 Acquired absence of both cervix and uterus

== ENCOUNTER → 2021-06-09 | Outpatient (CLI) | payer OTHER | LOC: M.ULTRA 10:30 | PROVIDERS: ATTEND Family Medicine | DX: N28.1 Cyst of kidney, acquired (principal); N28.89 Other specified disorders of kidney and ureter; I70.1 Atherosclerosis of renal artery; K55.1 Chronic vascular disorders of intestine ==